=== PATIENT | female | born 1985 ===

== ENCOUNTER → 2018-08-13 | Emergency (ER) | payer OTHER ==
[~2018-08-13] VITALS: Ht 177.8 cm; Wt 61.2 kg
[~2018-08-13] MED LIST: PRENATAL 19 TA1 EAC1 PO
== END | disposition home or self-care (01) ==
LOC: ER 19:18
DX: O20.0 Threatened abortion (principal); Z34.81 Encounter for supervision of other normal pregnancy, first trimester

== ENCOUNTER 2020-02-10 01:52 | Inpatient (IN) | payer OTHER ==
[~2020-02-10] VITALS: Ht 177.8 cm; Wt 82.6 kg
[2020-02-10] MEDS ORDERED: VALTREX1000 MG PO (02:16)
[2020-02-11] MEDS ORDERED: Tylenol #3 PO (10:03)
== END 2020-02-11 13:59 | disposition home or self-care (01) | DRG 807 ==
LOC: LDR 01:52 → SURG-SUITE 03:51
PROVIDERS: ADMIT Obstetrics & Gynecology
PROC: 10E0XZZ Delivery of Products of Conception, External Approach (ICD-10-PCS; principal; 2020-02-10)
PROC: 0KQM0ZZ Repair Perineum Muscle, Open Approach (ICD-10-PCS; 2020-02-10)
PROC: 10907ZC Drainage of Amniotic Fluid, Therapeutic from Products of Conception, Via Natural or Artificial Opening (ICD-10-PCS; 2020-02-10)
PROC: 4A1HXCZ Monitoring of Products of Conception, Cardiac Rate, External Approach (ICD-10-PCS; 2020-02-10)
DX: O70.1 Second degree perineal laceration during delivery (principal); Z37.0 Single live birth; Z3A.39 39 weeks gestation of pregnancy